=== PATIENT | female | born 1970 | race Caucasian/White ===

== ENCOUNTER 2017-04-16 20:26 | Emergency (ER) | payer OTHER ==
[~2017-04-16] VITALS: Ht 177.8 cm; Wt 63.5 kg
[2017-04-16] MEDS ORDERED: LISINOPRIL20 MG ORAL (20:43)
[2017-04-16 20:45] VITALS: BP 165/97
[2017-04-16] MEDS ORDERED: Solu-MEDROL 125mg Inj IVP ONE (21:30)
[2017-04-16] MEDS ORDERED: DiphenhydrAMINE 50mg/ml Inj IVP ONE (21:30)
--- NOTE | 2017-04-16 21:55 | Emergency Room Report ---
History of Present Illness General Chief Complaint: Edema Source: Patient Present Illness HPI This is a 46-year-old female with history of high blood pressure. She just started lisinopril this over a week ago. She presents with chief complaint of lip swelling. Onset around 5 PM tonight. It came on slowly and progressively gotten worse. She bit her lip eating this morning around 10 AM. There is no complication until 5 PM. No other injury. No swelling of her tongue. No respiratory complaint. Allergies: Coded Allergies: No Known Allergies (Unverified , 04/16/17) Patient History Past Medical History: see triage record, old chart reviewed, HTN Past Surgical History: none Pertinent Family History: none Social History: Denies: smoking Last Menstrual Period: 03/07/17 Now: No : 0 Para: 0 Immunizations: other Reviewed Nursing Documentation: PMH: Agreed, PSxH: Agreed Nursing Documentation-PMH Past Medical History: No History, Except For Hx Hypertension: Yes Review of Systems Eye: Denies: eye pain, blurred vision ENT: Denies: ear pain, nose congestion, throat swelling Respiratory: Denies: cough, shortness of breath Cardiovascular: Denies: chest pain, palpitations Gastrointestinal: Denies: abdominal pain, diarrhea, nausea, vomiting Musculoskeletal: Denies: back pain, joint pain Skin: Denies: rash Neurological: Denies: headache, numbness Endocrine: Denies: increased thirst, increased urine Hematologic/Lymphatic: Denies: easy bruising All Other Systems: negative except mentioned in HPI Physical Exam Vital Signs Date Time Temp Pulse Resp B/P (MAP) Pulse Ox O2 Delivery O2 Flow Rate FiO2 04/16/17 20:40 98.4 69 14 165/97 98 Room Air 98.4 vitals normal except high blood pressure Sp02 EP Interpretation: reviewed, normal General Appearance: well appearing, no apparent distress, alert Head: normocephalic, atraumatic Eyes: bilateral eye PERRL, bilateral eye EOMI ENT: hearing grossly normal, normal pharynx, other - Lower lip with edema mostly left side. On and aspect of the lower lip this small superficial abrasion. Neck: full range of motion, supple, no meningismus Respiratory: chest non-tender, lungs clear, normal breath sounds Cardiovascular #1: regular rate, rhythm, no murmur Gastrointestinal: normal bowel sounds, non tender, no mass, no organomegaly, no bruit, non-distended Musculoskeletal: back normal, gait/station normal, normal range of motion Psychiatric: mood/affect normal Skin: warm/dry Medical Decision Making Diagnostic Impression: Primary Impression: Angioedema Qualified Codes: T78.3XXA - Angioneurotic edema, initial encounter ER Course Patient presents with angioedema. This most likely secondary to AYANNA inhibitor. I doubt that her simple superficial bite to the lip caused this problem. I kept overnight because she was not getting better and actually slightly worsen. She slept through the night and now much improved. No respiratory issue. We' ll discharge home. I will put her on a different blood pressure medication. Told her to call for an AYANNA inhibitor from now on. Last Vital Signs Date Time Temp Pulse Resp B/P (MAP) Pulse Ox O2 Delivery O2 Flow Rate FiO2 04/16/17 20:45 69 14 Room Air 04/16/17 20:45 98.4 165/97 98 98.4 Status: improved Disposition: HOME, SELF-CARE Condition: Stable Scripts Prednisone* (PREDNISONE*) 20 Mg Tablet 40 MG ORAL DAILY, #6 TAB Prov: DAWN MONGE M.D. 04/17/17 Loratadine (CLARITIN) 10 Mg Capsule 10 MG ORAL DAILY, #30 CAP Prov: DAWN MONGE M.D. 04/17/17 Amlodipine Besylate (Norvasc) 10 Mg Tablet 5 MG ORAL DAILY, #30 TAB Prov: DAWN MONGE M.D. 04/17/17 Additional Instructions: Stop the lisinopril. Consider yourself allergic to AYANNA inhibitor from now on. Followup your DrSkye in 7 days. Return if symptom worsen. DAWN MONGE M.D. Apr 16, 2017 21:55
[2017-04-16 23:00] VITALS: BP 162/88
[2017-04-17 01:00] VITALS: BP 158/92
[2017-04-17] MEDS ORDERED: Solu-MEDROL 125mg Inj IVP ONE (01:00)
[2017-04-17] MEDS ORDERED: DiphenhydrAMINE 50mg/ml Inj IVP ONE (01:00)
[2017-04-17 01:06] LABS: BASOPHILS % (AUTO) 1.1 % (0.0-2.0); EOSINOPHILS % (AUTO) 0.7 % (0.0-3.0); HEMATOCRIT 44.1 % (37.0-47.0); HEMOGLOBIN 14.7 G/DL (12.0-16.0); LYMPHOCYTES % (AUTO) 35.6 % (20.0-45.0); MEAN CORPUSCULAR VOLUME 93 FL (80-99); MONOCYTES % (AUTO) 7.3 % (1.0-10.0); NEUTROPHILS % (AUTO) 55.3 % (45.0-75.0); PLATELET COUNT 217 K/UL (150-450); RED BLOOD COUNT 4.74 M/UL (4.20-5.40); RED CELL DISTRIBUTION WIDTH 12.5 % (11.6-14.8); WHITE BLOOD COUNT 7.1 K/UL (4.8-10.8)
[2017-04-17 01:15] LABS: ANION GAP 9 mmol/L (5-15); BLOOD UREA NITROGEN 11 mg/dL (7-18); CALCIUM 8.9 MG/DL (8.5-10.1); CARBON DIOXIDE 26 MMOL/L (21-32); CHLORIDE 102 MMOL/L (98-107); CREATININE 0.7 MG/DL (0.55-1.30); POTASSIUM 3.3 MMOL/L (3.5-5.1); SODIUM 137 MMOL/L (136-145)
[2017-04-17 03:00] VITALS: BP 167/87
[2017-04-17] MEDS ORDERED: CLARITIN10 M2 ORAL (05:51)
[2017-04-17] MEDS ORDERED: PREDNISONE20 MG ORAL (05:51)
[2017-04-17] MEDS ORDERED: NORVASC10 MG ORAL (05:51)
[2017-04-17 06:10] VITALS: BP 144/91
== END 2017-04-17 06:10 | disposition home or self-care (01) ==
LOC: EMR 04-17 03:02
DX: T78.3XXA Angioneurotic edema, initial encounter (principal); I10 Essential (primary) hypertension
CPT/HCPCS: 36415; 80048; 85025; 96374; 96375; 96376; 99284; J1200; J2930; S0028